=== PATIENT | female | born 1960 | race Caucasian/White ===

== ENCOUNTER 2019-02-03 05:51 | Inpatient (IN) | payer OTHER ==
[2019-01-14 08:24] LABS: HEMATOCRIT 40.9 % (37.0-47.0); HEMOGLOBIN 13.7 gm/dL (12.0-15.0); MCH 28.5 pg (26.0-34.0); MCHC 33.5 g/dL (28.0-37.0); MCV 85.2 fL (80.0-100.0); RBC 4.8 mil/uL (4.20-5.00); RDW 13.5 % (10.5-14.5); WBC 6.5 thou/uL (4.0-11.0)
[2019-01-14 08:25] LABS: URINE BILIRUBIN NEGATIVE (Negative); URINE BLOOD NEGATIVE (Negative); URINE CLARITY SL CLOUDY; URINE COLOR YELLOW; URINE GLUCOSE-RANDOM* NEGATIVE (Negative); URINE KETONES NEGATIVE (Negative); URINE NITRITE-REFLEX NEGATIVE (Negative); URINE PROTEIN (DIPSTICK) NEGATIVE (Negative); URINE SPECIFIC GRAVITY 1.015 (1.005-1.035); URINE UROBILINOGEN 0.2 E.U./dl (0.2-1.0)
[2019-01-14 08:31] LABS: URINE LEUKOCYTES-REFLEX 1+ (Negative)
[2019-01-14 08:32] LABS: ALBUMIN 4.1 g/dL (3.4-5.0); CALCIUM 9.8 mg/dL (8.5-10.1); CREATININE 0.9 mg/dL (0.6-1.0); POTASSIUM 4.8 mmol/L (3.5-5.1)
[2019-01-14 08:37] LABS: PROTIME 10.2 Seconds (9.3-11.4)
[2019-01-14 08:38] LABS: AMORPHOUS URATES Moderate /LPF (None Seen); CASTS None Seen /LPF (None Seen); SQUAMOUS >10 Many /LPF (0-3); URINE RBC None Seen /HPF (0-2)
[2019-01-14 08:39] LABS: BACTERIA-REFLEX 1-9 Few /HPF (None Seen); URINE WBC-REFLEX 0-5 Rare /HPF (0-5)
--- NOTE | 2019-01-14 13:24 | EKG ---
[address] [address] ELECTROCARDIOGRAM REPORT Name: ARMIDA DAWNN Room #: PRE IN [facility]#: [id number] ������������������ Admission: ������������������ Attend Phys: Dominick Keyes MD Discharge: ������������������ Date of : 62 Report #: [id number] ����������������������������������������������������������������� [id number] THIS REPORT FOR: //name// [facility] Test Date: 2019-01-14 Test Time: 08:19:17 Pat Name: ARMIDA DAWN Department: Room: Gender: F [employer] Teacher: harinieugenia : 1960 Requested By: Dominick Keyes Order Number: [id number] MD: Lavell Islas Measurements Intervals [place] Rate: 56 P: 34 MD: 143 QRS: -13 QRSD: 101 T: 22 QT: 413 QTc: 399 Interpretive Statements Sinus bradycardia Poor R wave progression No previous ECG available for comparison Electronically Signed On 01-14-2019 13:24:20 CDT by Lavell Islas [email or web address] ��������������������������������������������� <ELECTRONICALLY SIGNED> ���������������������������������������� By: Lavell Islas MD, [facility] ��������������������������������������������� 01/14/19 1324 0819 8 Lavell Islsa MD, FAC /EPI
[2019-02-03] VITALS (7 sets, daily range): BP systolic 124–169; BP diastolic 67–89
[~2019-02-03] VITALS: Ht 162.6 cm; Wt 102.1 kg
[~2019-02-03 05:51] MED LIST: BIOTIN1 M1 PO; LIPITOR 20 MG T20 M1 PO; MULTIVITAMINS PO; OMEPRAZOLE40 MG PO; SPIRONOLACTONE100 M1 PO; VITAMIN D32000 UNI1 PO
--- NOTE | 2019-02-03 19:50 | NUR ---
Admitted to the floor from OR, s/p R Total knee replacement. On clear liquid then advanced as tolerated, pt given jello and chicken broth- tolerated well, diet progressed to regular. With O2 at 2lpm via nasal cannula, uses CPAP at night, will bring her own machine this PM. A+Ox4. With surgical wound at R knee, dressing C/D/I; NADIA, TEDs, SCDs and polar pack in place. Pt complained of pain, due PRN pain meds given as prescribed. Seen by PT post op for assessment, during therapy pt complained of nausea- PRN anti-emetics given as prescribed. Post op vital signs taken and stable, kept comfortable. Able to void using bedside commode. With NS1/2 at 100cc/hr, infusing well at L FA. NVS intact. Falls risk, falls bundle in place.
--- NOTE | 2019-02-04 03:37 | NUR ---
ASSUMED CARE FROM PREVIOUS SHIFT PT RESTING IN BED DRESSING ON RIGHT KNEE DRY AND INTACT , PAIN MEDICATION GIVEN FOR C/O HEADACHE. DISCUSSED PLAN OF CARE AND VERBALIZED UNDERSTANDING AND AGREEABLE. CPAP PLACED ON BY RESP , PT RESTED WELL THROUGHOUT HOURLY ROUNDS, WILL CONTINUE WITH CURRENT PLAN OF CARE AND REPORT CHANGES OR ABNORMAL FINDINGS.
[2019-02-04 04:35] VITALS: BP 113/65
[2019-02-04 05:42] LABS: ABSOLUTE NEUTROPHILS 12.5 thou/uL (1.4-8.2); HEMATOCRIT 36.4 % (37.0-47.0); HEMOGLOBIN 11.7 gm/dL (12.0-15.0); MCH 27.9 pg (26.0-34.0); MCHC 32.3 g/dL (28.0-37.0); MCV 86.5 fL (80.0-100.0); MONOCYTES 9.7 % (1.0-8.0); PLATELET COUNT 298 thou/uL (150-400); POLYS 80.3 % (36.0-66.0); RBC 4.21 mil/uL (4.20-5.00); RDW 13.4 % (10.5-14.5); WBC 15.5 thou/uL (4.0-11.0)
[2019-02-04 05:57] LABS: CALCIUM 8.9 mg/dL (8.5-10.1); CREATININE 0.8 mg/dL (0.6-1.0); MAGNESIUM 1.9 mg/dL (1.8-2.4); POTASSIUM 4.3 mmol/L (3.5-5.1)
--- NOTE | 2019-02-04 06:43 | O ---
[facility] [place] [address] OPERATIVE REPORT Name: ARMIDA DAWN Room #: 458-P [facility] IN M.R.#: [id number] Admission: 02/03/19 ������������������ Attend Phys: Dominick Keyes MD Discharge: ������������������ Date of : 62 Report #: [id number] THIS REPORT FOR: //name// CC: Justo Keyes DATE OF SERVICE: 02/03/2019 SERVICE: Orthopedics. FACILITY: [facility] SURGEON: Domniick Keyes MD DOPING SUPERVISOR: Christine Dugan NP INDICATION FOR DOPING SUPERVISOR: Retraction exposure, assistance with reconstruction. PREOPERATIVE DIAGNOSIS: End-stage osteoarthritis, right knee. POSTOPERATIVE DIAGNOSIS: End-stage osteoarthritis, right knee. PROCEDURES: 1. Right total knee arthroplasty. 2. Computer navigated robotic-assisted arthroplasty. COMPLICATIONS: None. ESTIMATED BLOOD LOSS: 75 mL. DRAINS: None. SPECIMENS: None. ANESTHESIA: General with regional. FINDINGS: Vega and Nephew size 4 bicruciate stabilized Journey II Oxinium femoral component with a size 2 Journey tibial baseplate, 29 mm patellar resurfacing button and 10 mm Journey II poly tray. HISTORY: The patient is a 58-year-old female with history of advanced right knee arthritis that had failed all conservative measures including rest, activity modifications, injections, physical therapy, and modalities. She had mycj-vz-hjzr arthritis with osteophytes, sclerosis and joint space loss. She had discussions about treatment measures and eventually elected to undergo surgical treatment after the risks, benefits, alternatives and indication of [facility] [address] [place] [address] OPERATIVE REPORT Name: ARMIDA DAWN Room #: 458-P [facility] IN .R.#: [id number] Admission: 02/03/19 ������������������ Attend Phys: Dominick Keyes MD Discharge: ������������������ Date of : 62 Report #: [id number] surgery were discussed with her in detail. Risks include but not limited to pain, bleeding, infection, injury to nerves or blood vessels, persistent pain despite surgical intervention, failure of the arthroplasty, need for further surgery including revision as well as complications related to anesthesia such as stroke, heart attack, pulmonary complications, thromboembolic disease and . Despite these risks, she wished to proceed. PROCEDURE IN DETAIL: After right lower extremity was correctly identified in preoperative holding area as the operative extremity, the patient underwent placement of single shot regional nerve block. She was then taken to the operating room where general anesthesia was induced without complication. She was padded appropriately. Prophylactic antibiotics were administered at appropriate time as well as TXA. Tourniquet was applied to right leg. Right lower extremity was prepped and draped in standard sterile fashion. Time-out procedure was performed. Esmarch was used. Tourniquet inflated to 350 mmHg. Standard anterior approach was made to the knee with a medial parapatellar arthrotomy. The patella was reflected. The osteophytes were removed. The medial and lateral menisci, anterior horns were resected and then later during the procedure, the posterior horns were resected as well. A limited release was performed both medially and laterally for being a valgus knee. She did have some slightly increased ligamentous laxity. The tracers were placed in the tibia and the femur and then the guides where they were computer navigated robotic Navio device placed with bicortical fixation in appropriate position. Mapping was used in the hip center and the anatomic alignment as well as the range of motion of the knee and the ligamentous laxity and then the bony resection was performed with the robotic-assisted bur followed by the cutting blocks in a typical fashion. Reinforcement checks were made throughout the bony resection. After this was completed, the femoral trial was selected and then the box cut was made. Initially, size 3 tibial tray was selected and then we switched to a size 2 tray with a 10 mm trial and then assessed range of motion and stability, alignment, again confirming it with the computer navigated assistance and found to be that the knee was in good position with excellent range of motion and good ligamentous balancing. The patella was then prepared. She has a relatively thin patella, so I reduced the bony resection by mm and a half and then placed the trial components, removed the lateral facet and then assessed the positioning and confirmed that the patellofemoral joint was not overstuffed. After this was completed, then the implants were removed. Posterior osteophytes were resected off the femur and then the posterior capsule was injected with the first of 4 syringes of the periarticular injection cocktail. The bone and joint was then thoroughly lavaged and the final implants were cemented into place with the 10 mm trial. While the cement cured, the residual 3 syringes of local anesthetic cocktail were infiltrated in the soft tissues. Tourniquet was then let down. Hemostasis was achieved and the knee was taken through range of motion, again confirming that the 10 mm trial was appropriate and then placed the final trial after all cement had been confirmed [facility] [address] [place] [address] OPERATIVE REPORT Name: ARMIDA DAWN Room #: 458-P [facility] IN Louise.Nathaly.#: [id number] Admission: 02/03/19 ������������������ Attend Phys: Dominick Keyes MD Discharge: ������������������ Date of : 62 Report #: [id number] to be removed appropriately. After this was completed, the knee was assessed for balancing. I was happy with the ligamentous balancing as well as the overall position alignment and ability to achieve full extension. The wound was once again thoroughly lavaged and then a gram of vancomycin powder was placed in the wound and the arthrotomy was closed with 0 Vicryl suture in hvevok-vh-oocbg fashion. The skin was then closed with 2-0 Vicryl suture followed by running subcuticular 3-0 Monocryl and Dermabond. The patient had a sterile dressing applied followed by compression stocking and PolarCare device. The patient was then awakened from anesthesia and taken to recovery room in stable condition. No complications. All counts were recorded as correct. ��������������������������������������������� <ELECTRONICALLY SIGNED> ���������������������������������������� By: Dominick Keyes MD ��������������������������������������������� 02/04/19 0643 [id number] [id number] Dominick Keyes MD /nt
[2019-02-04 08:20] VITALS: BP 111/62
[2019-02-04 09:00] VITALS: BP 111/62
--- NOTE | 2019-02-04 11:14 | NUR ---
Received awake on bed. Due medications given as prescribed, able to swallow tablets w/o difficulty. A+Ox4. On room air during the day and CPAP at night. Vital signs stable. Complained of pain, due PRN pain meds given as prescribed. Pt seen by Ortho this AM- pending d/c orders put in after her PM PT session. Pt asked if she can resume her home maintenance meds- Dr Forrest informed, a/w call back. Surgical dressing at R Knee C/D/I; NADIA, TEDs, Polar pack in place. Had PT session this AM- tolerated well. Assisted in ADLs.
[2019-02-04 13:31] VITALS: BP 111/62
--- NOTE | 2019-02-04 14:34 | NUR ---
PT ADMITTED RELATED TO RIGHT TOTAL KNEE REPLACEMENT. CM REVIEWED CHART AND SPOKE WITH CARE TEAM. CM MET WITH PT AT BEDSIDE. PT IS A&O X4. CM ROLE INTRODUCED. PT INDICATED SHE LIVES IN A HOUSE WITH HER SPOUSE WITH 2 STEPS TO ENTER AND NONE SHE USES INSIDE. 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 PT INDICATED NO DME OR HH HX. PT INDICATED SHE IS TO DO OP PT AT [facility] ON SATURDAY. CARE TEAM AND PT INDICATED THAT SHE WOULD BE READY TO DC HOME LATER THIS AFTERNOON. A FWW WAS ORDERED FOR PT THROUGH PROVIDER [employer] AND IT WAS DELIVERED FOR HER. NO OTHER CM INTERVENTION INDICATED. CASE CLOSED.
[2019-02-04 14:49] VITALS: BP 150/78
--- NOTE | 2019-02-04 14:52 | NUR ---
PATIENT HAD PT AND OT WHO HELPED HER AMBULATE, WASH, AND CHANGE. BED NOT CHANGED BUT STRAIGHTENED DUE TO DISCHARGE. UPON DISCHARGE, PATIENT WAS TAKEN OUT BY VOLUNTEER VIA WHEELCHAIR.
== END 2019-02-04 16:12 | disposition home or self-care (01) | DRG 470 ==
LOC: TBA 05:51 → 4W 05:51 → PRE 07:41 → 4W 13:52 → ENTRNSPT 02-04 14:50 → EDTRNSPTSTS 02-04 14:53 → 4W 02-04 16:12
PROVIDERS: Nurse Practitioner; ADMIT Orthopaedic Surgery Sports Medicine
DX: M17.11 Unilateral primary osteoarthritis, right knee (principal); E78.5 Hyperlipidemia, unspecified; K21.9 Gastro-esophageal reflux disease without esophagitis; G47.33 Obstructive sleep apnea (adult) (pediatric); E66.01 Morbid (severe) obesity due to excess calories; E78.00 Pure hypercholesterolemia, unspecified; Z90.49 Acquired absence of other specified parts of digestive tract; Z90.710 Acquired absence of both cervix and uterus; Z68.38 Body mass index [BMI] 38.0-38.9, adult; R11.0 Nausea; T41.45XA Adverse effect of unspecified anesthetic, initial encounter; Y92.239 Unspecified place in hospital as the place of occurrence of the external cause
CPT/HCPCS: 10047; 50010; 50101; 50415; 50954; 51130; 51225; 51320; 52282; 53000; 53078; 54118; 55372; 56524; 56527; 56528; 57095; 57103; 57110; 57127; 57180; 62110; 62900; 64043; 65060; 70005

== ENCOUNTER → 2020-03-23 | Outpatient (CLI) | payer OTHER ==
[~2020-03-23] MED LIST changes: +BIOTIN10000 MC1 PO; +DUEXIS 800-26.1 EACH PO; +VITAMIN D350 MC3 PO
== END ==
LOC: LAB 11:18
PROVIDERS: ATTEND Orthopaedic Surgery
DX: Z01.812 Encounter for preprocedural laboratory examination (principal); Z20.828 Contact with and (suspected) exposure to other viral communicable diseases

== ENCOUNTER 2020-03-28 06:20 | Observation (INO) | payer OTHER ==
[2020-03-14 09:09] LABS: HEMOGLOBIN 13.6 gm/dL (12.0-15.0); MCH 29.4 pg (26.0-34.0); MCHC 33.3 g/dL (28.0-37.0); MCV 88.3 fL (80.0-100.0); RBC 4.64 mil/uL (4.20-5.00); RDW 14.2 % (10.5-14.5); WBC 6.9 thou/uL (4.0-11.0)
[2020-03-14 09:21] LABS: CALCIUM 9.9 mg/dL (8.5-10.1); CREATININE 0.7 mg/dL (0.6-1.0); POTASSIUM 4.5 mmol/L (3.5-5.1)
[2020-03-14 09:33] LABS: URINE BILIRUBIN NEGATIVE (Negative); URINE BLOOD NEGATIVE (Negative); URINE CLARITY CLEAR; URINE COLOR YELLOW; URINE GLUCOSE-RANDOM* NEGATIVE (Negative); URINE KETONES NEGATIVE (Negative); URINE LEUKOCYTES-REFLEX NEGATIVE (Negative); URINE NITRITE-REFLEX NEGATIVE (Negative); URINE PROTEIN (DIPSTICK) NEGATIVE (Negative); URINE SPECIFIC GRAVITY 1.025 (1.005-1.035); URINE UROBILINOGEN 0.2 E.U./dl (0.2-1.0)
[~2020-03-28] VITALS: Ht 162.6 cm; Wt 110.7 kg
[2020-03-28] VITALS (7 sets, daily range): BP systolic 131–165; BP diastolic 79–91
--- NOTE | ~2020-03-28 | O ---
[facility] [place] [address] [address] [place] [address] OPERATIVE REPORT Name: ARMIDA DAWN Room #: 438-P DIS IN M.R.#: [id number] Admission: 03/28/20 Attend Phys: Migue Callahan MD Discharge: 03/29/20 Date of : 62 Report #: [id number] THIS REPORT FOR: cc: Justo Lazcano MD, James R. MD Abraham,Migue Sim MD ~ CC: Justo Callahan DATE OF SERVICE: 03/28/2020 PREOPERATIVE DIAGNOSIS: Left hip osteoarthritis. POSTOPERATIVE DIAGNOSIS: Left hip osteoarthritis. PROCEDURE: Left total hip arthroplasty. SURGEON: Migue Callahan MD MACHINING ENGINEER: Hali Carrillo PA-C INDICATIONS FOR MACHINING ENGINEER: Throughout the case, extensive retraction and manipulation of the hip was required including dislocation and reduction. This was afforded to me by my surgery assistant. ANESTHESIA: LMA. IMPLANTS: Vega and Nephew size 52 R3 acetabular cup size 12 high offset Synergy press fit stem and a size 36, -3 Oxinium head and Arthrex FiberTape x 1 for prophylactic fixation. ESTIMATED BLOOD LOSS: 200 mL. COMPLICATIONS: None. SPECIMENS: None. CONDITION UPON LEAVING THE OPERATING ROOM: Stable. INDICATIONS FOR PROCEDURE: The patient is a 59-year-old female with left hip osteoarthritis. She has failed conservative measures for this and after discussion with her, she elected for left total hip arthroplasty. DESCRIPTION OF PROCEDURE: Risks, benefits, alternatives, and complications were discussed in detail with the patient including but not limited to risk of anesthesia, risk of damage to nerves, arteries, blood vessels, risk for [facility] [address] [place] [address] OPERATIVE REPORT Name: ARMIDA DAWN Room #: 438-P DIS IN M.R.#: [id number] Admission: 03/28/20 Attend Phys: Migue Callahan MD Discharge: 03/29/20 Date of : 62 Report #: [id number] infection, bleeding, risk for leg length discrepancy, instability and need for reoperation. Informed consent was obtained from the patient. Left hip was appropriately marked in the preoperative holding area. IV Ancef was given for preoperative antibiotics. She was brought to the operating room and placed in supine position on the operating room table. LMA anesthesia was induced without complication. She was then placed in the right lateral decubitus position with the left hip uppermost. Left hip and lower extremity were prepped and draped in the normal sterile fashion. Timeout was performed properly identifying the patient and procedure as well as the instrumentation and implants. All in the operating room were in agreement. Standard posterior approach to the hip was made with 10 blade through the skin. Dissection taken down to the fascia with Bovie cautery and Jamison elevator was used to clean off the fascia. Fresh 10 blade was used to make a fascial incision. This was taken proximally and distally with curved Limon scissor. Charnley retractor was placed. Trochanteric bursa was taken down with Bovie cautery. Piriformis tendon was identified, tagged, and taken down with Bovie. Short external rotators were also taken down with Bovie cautery. Capsulotomy was made and capsule ends were tagged for later repair. The hip was dislocated and there was extensive osteoarthritic change of the femoral head. Femoral neck cut was made 1 cm proximal to lesser trochanter based on preoperative templating and the femoral head was removed. Deep acetabular retractors were placed. Labrum was removed sharply. Pulvinar was removed with Bovie cautery. Acetabulum was then sequentially reamed up to a size 52, at which point, there was excellent bleeding cancellous bone. A size 51 trial cup was placed, found to have a good fit. Final size 52 R3 acetabular cup was placed and seated. Two acetabular screws were placed for backup fixation. Polyethylene liner for a 36 head was placed. Attention was turned to the femur. An Arthrex FiberTape was then placed around the proximal femur for prophylactic fixation and the femur was reamed and broached up to a size 12, at which point, the size 12 broach was stable, was trialed with a high offset neck and a 36, +0 head. Hip was reduced, taken through range of motion, found to be stable, found to have equal leg lengths. Hip was dislocated and broach was removed. Final size 12 high offset Synergy press-fit stem was placed and seated. This did not seat as far as the broach and so we trialled with a 36, -3 head. Hip was reduced, taken through range of motion, found to be stable, found to have equal leg lengths. Hip was dislocated one last time and a final size 36, -3 Oxinium head was placed. Hip was reduced, taken through range of motion, found to be stable, found to have equal leg lengths. Wound was thoroughly irrigated with normal saline. Periarticular injection consisting of morphine, ropivacaine, epinephrine and Toradol was placed around the hip joint capsule. A gram of vancomycin was placed deep in the joint. The capsule and piriformis were repaired with 0 FiberWire. Fascia was closed with 0 Vicryl, skin was closed with 2-0 Vicryl, skin staple and a NADIA dressing was applied. The [address] [address] OPERATIVE REPORT Name: ARMIDA DAWN Room #: 438-P DIS IN M.R.#: [id number] Admission: 03/28/20 Attend Phys: Migue Callahan MD Discharge: 03/29/20 Date of : 62 Report #: [id number] patient tolerated this procedure well and went to recovery room under care of anesthesia postoperatively. By: [id number] Migue Callahan MD /nt
--- NOTE | 2020-03-28 13:54 | NUR ---
ASSESSMENT: CM REVIEWED CHART AND SPOKE WITH PATIENT. PT IS S/P L GENE. PT REPORTS LIVING IN A HOUSE WITH HER . PT REPORTS ABOUT TWO STEPS TO ENTER AND NO STEPS SHE HAS TO USE ONCE INSIDE. PT REPORTS HAVING A CANE AND WALKER AT HOME TO ASSIST WITH AMBULATION. PT REPORTS BEING INDEPENDENT WITH ADLS. PT REPORTS SHE HAS OUTPATIENT THERAPY ALREADY ARRANGED AT [facility] FOR SATURDAY. CM DISCUSSED ROLE. PT DOES NOT ANTICIPATE HAVING ANY NEEDS FROM CM. CM WILL AWAIT TO SEE HOW PATIENT PROGRESSING WITH THERAPY.
--- NOTE | 2020-03-28 15:34 | NUR ---
Admitted pt. to the floor from surgery at 1120. Pt. was intially very groggy and in and out of sleep, but was AOx4 when awake. Pt. complained of pain and stated she gets N/V when taking hydrocodone. Dr. Callahan contacted, order for PRN morphine given. Pt. became awake and alert shortly there after. Fall precautions in place.
[2020-03-28] MEDS ORDERED: MIRALAX17 GM PO (16:50)
[2020-03-28] MEDS ORDERED: SENNA8.6 MG PO (16:50)
--- NOTE | 2020-03-29 03:32 | NUR ---
PT C/O PAIN ON HER L HIP,MANAGED WITH MED.PT USING BEDPAN TO VOID.PT CONT ON HER IVF AND IV ABX.PT SLEEPING WITH HER CPAP AT THIS TIME.DRSG TO HER L HIP C/D/I WITH ICE PACK.CALL LIGHT WITHIN REACH.
[2020-03-29 04:23] VITALS: BP 125/69
[2020-03-29 05:36] LABS: ABSOLUTE NEUTROPHILS 10.7 thou/uL (1.4-8.2); BASOPHILS 0.2 % (0.0-2.0); HEMATOCRIT 30.5 % (37.0-47.0); HEMOGLOBIN 10.2 gm/dL (12.0-15.0); LYMPHOCYTES 9.6 % (24.0-44.0); MCH 29.7 pg (26.0-34.0); MCHC 33.5 g/dL (28.0-37.0); MCV 88.8 fL (80.0-100.0); MONOCYTES 9.1 % (1.0-8.0); PLATELET COUNT 266 thou/uL (150-400); POLYS 81.1 % (36.0-66.0); RBC 3.43 mil/uL (4.20-5.00); RDW 13.5 % (10.5-14.5); WBC 13.1 thou/uL (4.0-11.0)
[2020-03-29 05:37] LABS: CREATININE 0.8 mg/dL (0.6-1.0); MAGNESIUM 1.8 mg/dL (1.8-2.4); POTASSIUM 4.3 mmol/L (3.5-5.1)
[2020-03-29 07:15] VITALS: BP 150/73
[2020-03-29 10:51] VITALS: BP 150/73
--- NOTE | 2020-03-29 11:23 | NUR ---
ON-GOING ASSESSMENT: CM REVIEWED CHART AND PT WAS CLEARED BY PHYSICAL THERAPY TODAY TO DISCHARGE. PT WILL DISCHARGE THEN START OUTPATIENT THERAPY. NO NEEDS FROM CM. PT HAS NEEDED DME AT HOME. CASE CLOSED.
--- NOTE | 2020-03-29 11:28 | NUR ---
Patient alert and oriented x4. Pleasant with daily cares and cooperative with plan of care. Plan to discharge this afternoon.
--- NOTE | 2020-03-29 11:44 | NUR ---
I have reviewed the student documentation.
== END 2020-03-29 11:30 | disposition home or self-care (01) ==
LOC: 4S 06:20 → TBA 06:20 → ADMC 08:15 → 4S 11:15 → ADMC 11:18 → 4S 03-29 11:30
PROVIDERS: Nurse Practitioner; ADMIT Orthopaedic Surgery; ATTEND Orthopaedic Surgery
DX: M16.12 Unilateral primary osteoarthritis, left hip (principal); M17.11 Unilateral primary osteoarthritis, right knee; K21.9 Gastro-esophageal reflux disease without esophagitis; E78.5 Hyperlipidemia, unspecified; G47.30 Sleep apnea, unspecified; Z79.899 Other long term (current) drug therapy
CPT/HCPCS: 10195; 50010; 50101; 50382; 50414; 51412; 53000; 53078; 53368; 54118; 56524; 56527; 56528; 56530; 57095; 57103; 62110; 62900; 70005